=== PATIENT | female | born 1985 | race Caucasian/White ===

== ENCOUNTER 2016-09-11 18:18 | Emergency (ER) | payer BC ==
[~2016-09-11] VITALS: Ht 167.6 cm; Wt 109.1 kg
[~2016-09-11 18:18] MED LIST: BACTRIM,SEPT1 TABLET PO; FARXIGA10 MG PO; FORTAMET1000 M1 PO; HUMALOG100 UNIT/2 SC; JANUVIA100 MG PO; KEFLEX500 MG PO; LEVEMIR100 UNIT/2 SC; LISINOPRIL5 MG PO; METFORMIN HCL500 M1 PO; ZOLOFT50 MG PO
[2016-09-11 19:16] LABS: POINT-OF-CARE METER ID UU14100415
[2016-09-11 20:12] LABS: POINT-OF-CARE METER ID UU13113702
[2016-09-11 20:28] VITALS: BP 135/77
== END 2016-09-11 20:29 | disposition home or self-care (01) ==
LOC: EME 18:18
PROVIDERS: Emergency Medicine
DX: E11.649 Type 2 diabetes mellitus with hypoglycemia without coma (principal); Z79.4 Long term (current) use of insulin
CPT/HCPCS: 82948; 99281; 99284

== ENCOUNTER 2017-08-25 06:09 | Observation (INO) | payer BC ==
[~2017-08-25] VITALS: Ht 167.6 cm; Wt 105.3 kg
[~2017-08-25 06:09] MED LIST changes: -LISINOPRIL5 MG PO; +PRINIVIL10 MG PO
[2017-08-25 06:39] LABS: BASOPHIL (%) 0.7 % (0-1); BASOPHIL COUNT 0.1 K/uL (0-0.1); EOSINOPHIL (%) 1.6 % (0-5); EOSINOPHIL COUNT 0.1 K/uL (0-0.3); HEMATOCRIT 42.2 % (36.0-46.0); HEMOGLOBIN 14.8 G/DL (11.9-15.5); IMMATURE GRANULOCYTE (%) 0.5 % (0.0-0.7); LYMPHOCYTE (%) 19.6 % (15-42); LYMPHOCYTE COUNT 1.7 K/uL (1.0-2.8); MCHC 35.1 G/DL (30.0-36.0); MCV 82.7 FL (83-99); MONOCYTE (%) 10.9 % (3-12); MONOCYTE COUNT 0.9 K/uL (0-0.8); NEUTROPHIL (%) 66.7 % (45-76); NEUTROPHIL COUNT 5.8 K/uL (1.8-6.4); PLATELET COUNT 271 K/uL (156-360); RBC DIS.WIDTH-CV 12.5 % (11.8-14.6); RBC DIS.WIDTH-SD 37.8 % (39-53); WHITE BLOOD COUNT 8.6 K/uL (4.1-10.2)
[2017-08-25 06:45] LABS: INTER. NORMALIZED RATIO 1.1
[2017-08-25 06:47] LABS: CARBON DIOXIDE (BICARBONATE) 18.6 MEQ/L (20-31)
[2017-08-25 06:48] LABS: PTT 27.3 SEC (25-37)
[2017-08-25 06:53] LABS: ALBUMIN 4.5 g/dL (3.2-4.8); CHLORIDE 103 mEq/L (99-109); POTASSIUM 3.6 mEq/L (3.7-5.4); SODIUM 140 mEq/L (136-147)
[2017-08-25 06:56] LABS: GLUCOSE 328 mg/dL (70-99); TOTAL PROTEIN 8.3 g/dL (6.4-8.3)
[2017-08-25 06:57] LABS: TOTAL BILIRUBIN 0.7 mg/dL (0.0-1.0)
[2017-08-25 06:59] LABS: ALKALINE PHOSPHATASE 81 IU/L (3-129); CREATININE 0.9 mg/dL (0.6-1.3); GFR ESTIMATE (CALCULATED) > 59 mL/min/
[2017-08-25 07:00] LABS: UREA NITROGEN (BUN) 14 mg/dL (9-23)
[2017-08-25 07:01] LABS: AST (GOT) 19 IU/L (2-34)
[2017-08-25 07:02] LABS: ALT (GPT) 37 IU/L (3-49)
[2017-08-25 07:03] LABS: TROP-I INTERPRETATION NEGATIVE; TROPONIN-I < 0.01 ng/mL (0.0-0.30)
[2017-08-25 08:36] LABS: THYROTROPIN (TSH) 3.5 MIU/L (0.4-5.5)
[2017-08-25 08:45] LABS: D-DIMER ELISA < 150.00 ng/mLDDU (<230)
[2017-08-25] MEDS ORDERED: LEVEMIR100 UNIT/2 SC (09:34)
[2017-08-25 10:16] LABS: CHLORIDE 108 mEq/L (99-109); POTASSIUM 3.8 mEq/L (3.7-5.4); SODIUM 140 mEq/L (136-147)
[2017-08-25 10:18] LABS: GLUCOSE 173 mg/dL (70-99)
[2017-08-25 10:21] LABS: CREATININE 0.7 mg/dL (0.6-1.3); GFR ESTIMATE (CALCULATED) > 59 mL/min/
[2017-08-25 10:22] LABS: UREA NITROGEN (BUN) 13 mg/dL (9-23)
[2017-08-25] MEDS ORDERED: INVOKANA300 MG PO (10:31)
[2017-08-25] MEDS ORDERED: GLUCOPHAGE1000 MG PO (10:31)
[2017-08-25] MEDS ORDERED: ZOLOFT100 MG PO (10:39)
[2017-08-25 10:41] LABS: APPEARANCE SL.HAZY ((CLEAR)); BILIRUBIN NEGATIVE; BLOOD SMALL; COLOR YELLOW ((YELLOW)); GLUCOSE (STRIP) >=500; KETONES 20; LEUKOCYTES NEGATIVE; NITRITE NEGATIVE; PROTEIN (STRIP) NEGATIVE; SPECIFIC GRAVITY 1.035 (1.000-1.030); UROBILINOGEN 0.2 MG/DL (0.2-1.0)
[2017-08-25 11:08] LABS: BACTERIA RARE /HPF; EPITHELIAL CELLS 1+ /HPF; MUCUS NONE SEEN /LPF; RED BLOOD CELLS RARE /HPF (0-5); UCUL ADDED? NO; WHITE BLOOD CELLS NONE SEEN /HPF (0-5)
[2017-08-25 12:07] VITALS: BP 115/71
[2017-08-25 14:00] LABS: HEMOGLOBIN A1c (GLYCOHEMOGLOB) 10.4 % (Below 5.7)
[2017-08-25 16:25] VITALS: BP 120/69
[2017-08-25 19:45] VITALS: BP 138/89
[2017-08-25 20:17] LABS: CHLORIDE 105 MEQ/L (99-109); CREATININE 0.8 MG/DL (0.6-1.3); GFR ESTIMATE (CALCULATED) > 59 mL/min/; GLUCOSE 203 mg/dL (70-99); POTASSIUM 3.9 MEQ/L (3.7-5.4); SODIUM 138 MEQ/L (136-147); UREA NITROGEN (BUN) 12 mg/dL (9-23)
[2017-08-26 01:25] VITALS: BP 148/70
[2017-08-26 03:37] VITALS: BP 114/60
[2017-08-26 07:13] VITALS: BP 127/72
[2017-08-26] MEDS ORDERED: LEVEMIR100 UNIT/2 SC (11:52)
[2017-08-26] MEDS ORDERED: LEVEMIR FL100 UNIT/1 SC (11:59)
[2017-08-26 12:23] VITALS: BP 125/80
== END 2017-08-26 13:49 | disposition home or self-care (01) ==
LOC: EME 06:09 → EDOF 10:42 → ENRESERV 10:43 → 5WEST 11:49
PROVIDERS: Emergency Medicine; Hospitalist
DX: R00.2 Palpitations (principal); E86.0 Dehydration; E11.9 Type 2 diabetes mellitus without complications; I10 Essential (primary) hypertension; E87.2 Acidosis; Z83.3 Family history of diabetes mellitus; Z82.49 Family history of ischemic heart disease and other diseases of the circulatory system; Z79.4 Long term (current) use of insulin; Z91.14 Patient's other noncompliance with medication regimen; Z88.0 Allergy status to penicillin
CPT/HCPCS: 71045; 80048 91; 80053; 81003; 82010; 82803; 82948; 83036; 84443; 84484; 85025; 85379; 85610; 85730; 93005; 99281; 99285; G0378; J1815; J7030

== ENCOUNTER 2018-01-28 21:26 | Emergency (ER) | payer BC ==
[~2018-01-28] VITALS: Ht 167.6 cm; Wt 109.8 kg
[~2018-01-28 21:26] MED LIST changes: +GLUCOPHAGE1000 MG PO; +INVOKANA300 MG PO; +LEVEMIR FL100 UNIT/1 SC; +ZOLOFT100 MG PO
[2018-01-28 21:55] LABS: HEMATOCRIT 39.6 % (36.0-46.0); MCHC 35.4 G/DL (30.0-36.0); MCV 84.8 FL (83-99); PLATELET COUNT 299 K/uL (156-360); RBC DIS.WIDTH-CV 12.2 % (11.8-14.6); RBC DIS.WIDTH-SD 37.2 % (39-53); RED BLOOD COUNT 4.67 M/uL (3.80-5.20); WHITE BLOOD COUNT 11.1 K/uL (4.1-10.2)
[2018-01-28 22:10] LABS: CHLORIDE 112 mEq/L (99-109); POTASSIUM 3.4 mEq/L (3.7-5.4); SODIUM 140 mEq/L (136-147)
[2018-01-28 22:11] LABS: GLUCOSE 146 mg/dL (70-99)
[2018-01-28 22:15] LABS: CREATININE 0.8 mg/dL (0.6-1.3); GFR ESTIMATE (CALCULATED) > 59 mL/min/
[2018-01-28 22:16] LABS: UREA NITROGEN (BUN) 19 mg/dL (9-23)
[2018-01-28 22:22] LABS: TROP-I INTERPRETATION NEGATIVE; TROPONIN-I < 0.01 ng/mL (0.0-0.30)
[2018-01-28 22:27] LABS: ALBUMIN 4.4 g/dL (3.2-4.8); MAGNESIUM 2.3 mg/dL (1.3-2.7)
[2018-01-28 22:29] LABS: TOTAL PROTEIN 8.1 g/dL (6.4-8.3)
[2018-01-28 22:31] LABS: TOTAL BILIRUBIN 0.3 mg/dL (0.0-1.0)
[2018-01-28 22:32] LABS: ALKALINE PHOSPHATASE 64 IU/L (3-129)
[2018-01-28 22:33] LABS: PHOSPHORUS 2.2 mg/dL (2.5-4.9)
[2018-01-28 22:34] LABS: AST (GOT) 21 IU/L (2-34)
[2018-01-28 22:35] LABS: ALT (GPT) 41 IU/L (3-49); DIRECT BILIRUBIN 0.1 mg/dL (0.0-0.3)
[2018-01-28 22:36] LABS: CREATINE KINASE 60 IU/L (1-294); LIPASE 29 U/L (1.0-51.0)
[2018-01-28 23:21] LABS: D-DIMER ELISA < 150.00 ng/mLDDU (<230)
[2018-01-29 00:49] LABS: QUANTITATIVE HCG < 4.0 MIU/ML
[2018-01-29 01:21] VITALS: BP 100/56
[2018-01-29 07:55] LABS: THYROTROPIN (TSH) 2.6 MIU/L (0.4-5.5)
== END 2018-01-29 01:23 | disposition home or self-care (01) ==
LOC: EME 21:26
PROVIDERS: Emergency Medicine
DX: R00.2 Palpitations (principal); R00.0 Tachycardia, unspecified; T43.225A Adverse effect of selective serotonin reuptake inhibitors, initial encounter; E87.6 Hypokalemia; E11.9 Type 2 diabetes mellitus without complications; Z79.84 Long term (current) use of oral hypoglycemic drugs
CPT/HCPCS: 71046; 80048; 80076; 82550; 83690; 83735; 84100; 84443; 84484; 84702; 85027; 85379; 93005; 99281; 99284; J7030